=== PATIENT | female | born 1975 | race Caucasian/White ===

== ENCOUNTER 2019-06-07 15:54 | Emergency (ER) | payer MEDICAID, SELFPAY ==
[2019-06-07 15:56] VITALS: BP 149/68; PULSE 87; RESP 18; TEMP 36.8; O2SAT 100
--- NOTE | 2019-06-07 15:57 | W.ED.GENAD ---
Discharge Plan Disposition Patient Disposition: HOME Condition: Improving Discharge Details Chief Complaint: Nk/Back Pain Clinical Impression: Muscle spasm Primary Care Provider: Keeley Ardon ED Provider: Concepción Fuentes Home Meds and New Rx's Prescriptions: New diazepam [Valium] 5 mg tablet 5 mg PO TID PRN (Reason: muscle spasm) Qty: 10 RF: 0 ibuprofen 600 mg tablet 600 mg PO Q6H PRN (Reason: pain) Qty: 60 RF: 0 Continued cranberry extract 300 MG tablet 300 mg PO RF: 0 ascorbic acid (vitamin C) [Vitamin C] 500 MG tablet 500 mg PO RF: 0 norethindrone acetate 5 mg tablet 5 mg PO DAILY Qty: 90 RF: 0 Discharge Instructions Instructions: Muscle Spasm (ED) Additional Instructions: You have a muscle spasm. Please encourage water intake. Massage and pressure to this area will be of benefit. Heat or ice to affected area. Gentle stretching as discussed. Please take at thousand milligrams of acetaminophen every 6 hours as needed for pain, you may add this with 600 mg of ibuprofen as needed. Valium was prescribed for muscle spasm. Do not take this medication when driving. If you develop fever/chills, rash, increased pain, shortness of breath or the new/worsening symptoms please seek care urgently once again. Otherwise, please follow-up with primary care at the end of the week for reevaluation. Referral to physical therapy is attached. Stand Alone Forms: Physical Therapy Referral Referrals: Keeley Ardon [Primary Care Provider] - Discharge Data Discharge Date/Time-TO BE ENTERED AT DEPARTURE: 06/07/19 17:30 Medical Decision Making Patient is a 44-year-old [id number] female, accompanied by her son, with chief complaint of right-sided back pain. She reports insidious onset approximately 1 week ago that is progressively worsening. She reports that she has been getting stiff and noted a knot in the area of discomfort. She indicates the area between the spine and the scapular body is area of maximal discomfort. She denies any trauma. No fevers or chills. States that she did have a cough a few weeks ago but this is improved. She denies any shortness of breath. No recent travel. On exam, patient appears slightly uncomfortable, particularly when trying to move her right hand. She does have a palpable area of muscle spasm in the area indicated between the thoracic spine and the scapular body. No erythema, warmth, drainage. No area of fluctuance. She is good range of motion of the shoulder. Good range of motion of her spine although she does have discomfort when trying to stretch this area such as when crossing the arm across her body. No sensory deficits. No midline tenderness. No paraspinal tenderness. Pain does not seem to be under the scapula, do not believe associated with scapular bursitis. Lungs are clear. No pain with compression of the chest wall. Do not suspect underlying lung etiology at this time based on exam and history. Patient be treated with Valium, acetaminophen and Lidoderm patch. Patient feels improved with the above treatment plan. I encouraged heat or ice. Stretching exercises were given to the patient. She is given strict return precautions. I have asked that she follow-up with primary care at the end of the week for reevaluation. Advised that she may continue with the Valium but I encouraged she not drive while taking this medication. All of her questions and concerns were addressed she is in agreement this plan. Referral for PT was also given, advised to call to make appointment. [facility] General Mode of arrival: ambulatory. Date/Time Provider Initiated Documentation: 06/07/19 15:56. Limitations to Documentation: no limitations. Information obtained by: patient and RN notes reviewed. History of Present Illness 44 year old F presents to the emergency department with the chief complaint of right sided scapular pain, described as moderate, with intensity rated at 6. Quality is described as aching, and is localized to the back. Patient reports no radiation. Patient started experiencing this week(s) (1) and it has been constant. Immobilization improves symptom(s), Movement worsens symptoms . Patient notes no other symptoms.; denies chest pain, cough, diaphoresis, fever/chills, nausea/vomiting, rash, shortness of breath and weakness. Patient did receive the following treatments prior to arrival, NSAID Related Data Home Medications Medication Instructions Recorded Confirmed ascorbic acid (vitamin C) [Vitamin 500 mg PO 05/20/16 C] cranberry extract 300 mg PO 05/20/16 norethindrone acetate 5 mg tablet 5 mg PO DAILY #90 tab 01/07/19 06/07/19 diazepam [Valium] 5 mg PO TID PRN #10 tab 06/07/19 ibuprofen 600 mg PO Q6H PRN #60 tab 06/07/19 Previous Rx's Medication Instructions Recorded norethindrone acetate 5 mg tablet 5 mg PO DAILY #90 tab 01/07/19 diazepam [Valium] 5 mg PO TID PRN #10 tab 06/07/19 ibuprofen 600 mg PO Q6H PRN #60 tab 06/07/19 Allergies Allergy/AdvReac Type Severity Reaction Status Date / Time No Known Allergies Allergy Unverified 06/07/19 16:00 Review of Systems Constitutional Constitutional: Reports as per HPI, Denies chills, Denies fatigue, Denies fever(s), Denies headache(s) and Denies weakness Eyes Eyes: Denies change in vision ENT Ears, Nose, Mouth, and Throat: Denies headache(s) and Denies neck pain Cardiovascular Cardiovascular: Denies chest pain, Denies dyspnea and Denies dyspnea on exertion Respiratory Respiratory: Denies cough, Denies dyspnea and Denies dyspnea on exertion Gastrointestinal Gastrointestinal: Denies abdominal pain, Denies change in bowel habits and Denies fecal incontinence Genitourinary Genitourinary: Reports as per HPI, Denies urinary incontinence and Denies urinary hesitancy Musculoskeletal Musculoskeletal: Reports as per HPI, Denies abnormal gait, Reports back pain, Denies deformity, Denies joint swelling, Denies muscle weakness, Denies neck pain, Denies numbness, Denies radiating pain into limb, Reports stiffness and Denies tingling Integumentary/Breasts Skin/Breast: Reports as per HPI Neurologic Neurologic: Denies abnormal gait, Denies headache(s), Denies numbness, Denies sensory deficit, Denies tingling and Denies weakness Endocrine Endocrine: Denies fatigue [facility] Social History Smoking/Tobacco Use Status: Never Alcohol Intake: never Drug use: Never Do you feel safe at home: Yes Do you feel safe in your relationship?: Yes Exam Const General: cooperative, healthy appearing, comfortable, no acute distress and well developed Nutritional Appearance: average body habitus and well nourished Orientation: alert and awake Eyes General: appearance normal, both eyes and all related structures Neck Neck: normal visual inspection, full ROM, no lymphadenopathy and no meningeal signs Resp Effort & Inspection: normal respiratory effort, able to speak in complete sentences and no respiratory distress Auscultation: clear to auscultation bilaterally, no rales, no rhonchi and no wheezes Cardio Rate: regular rate Rhythm: regular rhythm Heart Sounds: S1 normal and S2 normal Back/Spine/Pelvis Back: no CVA tenderness Cervical Spine: normal cervical lordosis, cervical ROM normal, No cervical spasm, No cervical spinal tenderness and No step off deformity Thoracic/Lumbar Spine: No thoracic and lumbar spine normal to inspection (muscle spasm as drawn below), No thoraco-lumbar ROM normal (limited secondary to discomfort), No mass, No paraspinal tenderness, No thoracic spinal tenderness and No lumbar spinal tenderness Pelvis: no pain with anterior-posterior compression and no pain with lateral compression Back/spine/pelvis image: 1. area of palpable muscle spasm Skin General skin exam: no rashes or lesions noted Neuro General: alert and awake Cognition: normal cognition Speech: speech normal Gait: normal gait Motor: muscle tone normal throughout Sensory Exam: no sensory deficits noted (no saddle paresthesias) Extrem General: normal to inspection, full ROM, normal capillary refill, no joint enlargement, no pedal edema, no calf tenderness and normal gait Psych Appearance: grossly normal and well kempt Mental Status: mental status grossly normal Speech and Movement: speech and movement normal
[2019-06-07] MEDS: Acetaminophen 500 MG TAB 1000 MG PO (16:24)
[2019-06-07] MEDS: Lidocaine 5% Patch 1 PATCH TP (16:25)
[2019-06-07] MEDS: diazePAM 5 MG TAB PO (16:25)
[2019-06-07 17:27] VITALS: BP 112/79; PULSE 79; RESP 16; O2SAT 100
[2019-06-07 17:31] VITALS: BP 112/79; PULSE 79; RESP 16; O2SAT 100
== END 2019-06-07 17:30 | disposition home or self-care (01) ==
PROVIDERS: Emergency Provider Physician Assistant; PCP Nurse Practitioner
DX: M62.830 Muscle spasm of back (principal)
CPT/HCPCS: 99283

== ENCOUNTER 2020-01-15 19:53 | Emergency (ER) | payer MEDICAID, SELFPAY ==
[2020-01-15 19:57] VITALS: BP 143/85; PULSE 95; RESP 14; TEMP 36.5; O2SAT 98
--- NOTE | 2020-01-15 20:10 | ED.GENADUL_ITS ---
Discharge Plan Disposition Patient Disposition: HOME Condition: Good Discharge Details Chief Complaint: Sorethroat Clinical Impression: Pharyngitis Primary Care Provider: Keeley Ardon ED Provider: Peña Ayala Home Meds and New Rx's Prescriptions: Continued cranberry extract 300 MG tablet 300 mg PO DAILY RF: 0 ascorbic acid (vitamin C) [Vitamin C] 500 MG tablet 500 mg PO DAILY RF: 0 norethindrone acetate 5 mg tablet 5 mg PO DAILY Qty: 90 RF: 0 ibuprofen 600 mg tablet 600 mg PO Q6H PRN (Reason: pain) Qty: 60 RF: 0 Discharge Instructions Instructions: Pharyngitis (ED) Additional Instructions: At this time your strep test is negative. We suspect your symptoms are secondary to a viral etiology. There is a chance that this is the start of something called herpangina, which the treatment is still Tylenol, Motrin, salt water gargles, and spraying the Hurricaine spray 4-5 times per day as needed. If you notice any worsening of your symptoms, or any new symptoms such as vomiting, diarrhea, fever, chills, shortness of breath, chest pain, numbness, weakness, or fainting , please return immediately to the emergency department for reevaluation. Please follow up with your primary care provider as soon as possible for reassessment and reevaluation. As always, it was a pleasure participating in your medical care today. Referrals: Keeley Ardon [Primary Care Provider] - Discharge Data Discharge Date/Time-TO BE ENTERED AT DEPARTURE: 01/15/20 20:15 Medical Decision Making 44-year-old female with no significant past medical history who [facility] today for evaluation of sore throat. Patient states that this morning when she woke up she had a dry throat sensation, throughout the day it is become more sensitive and painful. She denies difficulty swallowing, she denies any hyper secretions. She states she has had strep throat in the past this feels similar. She denies any fever, chills, headache, neck pain, nausea vomiting or diarrhea, cough or shortness of breath. She denies any recent foreign travel or sick contacts. 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 No other complaints at this time. No other modifying factors. She has taken Tylenol Motrin which has slightly improved her symptoms and has been doing salt water gargles. Physical exam demonstrates no tonsillar enlargement or exudates. There is erythema in the posterior oropharynx and the uvula, no edema. No signs of airway compromise or peritonsillar abscess whatsoever. Strep test is negative. Signs and symptoms are consistent with a viral upper respiratory infection. This also may be the very early onset of herpangina. We did give Hurricaine spray and the patient had notable relief with this. Will recommend intermittent rare use of this at home every 6 hours. Discussed red flags for which to return. Recommend continue Tylenol Motrin saltwater gargles. No indication for antibiotics at this time. I have extensively reviewed the treatment plan and discharge instructions with the patient. I have addressed all patient concerns at this time. The patient was made aware of what symptoms to monitor for that would warrant a return to the emergency department. Discussed the plan with the patient, they demonstrate verbal understanding and agreement with our assessment and plan at this time. HPI General Date/Time Provider Initiated Documentation: 01/15/20 20:00 . HPI Narrative: 44-year-old female with no significant past medical history who presents today for evaluation of sore throat. Patient states that this morning when she woke up she had a dry throat sensation, throughout the day it is become more sensitive and painful. She denies difficulty swallowing, she denies any hyper secretions. She states she has had strep throat in the past this feels similar. She denies any fever, chills, headache, neck pain, nausea vomiting or diarrhea, cough or shortness of breath. She denies any recent foreign travel or sick contacts. 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 No other complaints at this time. No other modifying factors. She has taken Tylenol Motrin which has slightly improved her symptoms and has been doing salt water gargles. Related Data Home Medications Medication Instructions Recorded Confirmed ascorbic acid (vitamin C) [Vitamin 500 mg PO DAILY 05/20/16 01/15/20 C] cranberry extract 300 mg PO DAILY 05/20/16 01/15/20 norethindrone acetate 5 mg tablet 5 mg PO DAILY #90 tab 01/07/19 01/15/20 ibuprofen 600 mg PO Q6H PRN #60 tab 06/07/19 01/15/20 Previous Rx's Medication Instructions Recorded norethindrone acetate 5 mg tablet 5 mg PO DAILY #90 tab 01/07/19 ibuprofen 600 mg PO Q6H PRN #60 tab 06/07/19 Allergies Allergy/AdvReac Type Severity Reaction Status Date / Time No Known Allergies Allergy Unverified 01/15/20 20:00 General Stated Complaint: Sorethroat LIUDMILA: 4 Review of Systems All systems reviewed & are unremarkable except as noted in HPI and below PFSH Social History Smoking/Tobacco Use Status: Never Alcohol Intake: never Drug use: Never Substance use type: does not use Do you feel safe at home: Yes Do you feel safe in your relationship?: Yes Exam Narrative Exam Narrative: 1.Const: Well-nourished, Well-developed, appearing stated age 2.Eyes: PERRL, no conjunctival injection, and symmetrical lids. 3.ENT: Tympanic membranes are orona and pearly with no evidence of effusion or rupture. Posterior oropharynx is notably erythematous on the soft palate, no severe erythema in the tonsils, no tonsillar exudate or enlargement. No lesions at this point on the mucosa, no vesicles or ulcerations. Atraumatic external nose and ears. Moist MM. Neck: Symmetric, trachea midline, No thyromegaly. Mayi ent demonstrates good movement of cervical neck. There is no nuchal rigidity, no nuchal tenderness. Patient is able to flex the neck without any difficulty or significant pain. Negative Kernig's and Brudzinski sign. 4.CVS: +S1/S2, No murmurs or gallops. Peripheral pulses 2+ and equal in all extremities. Brisk capillary refill in all extremities. 5.RESP: Unlabored respiratory effort. Clear to auscultation bilaterally. No wheezes rales or rhonchi 6.GI: Soft, Nontender/Nondistended, No hepatosplenomegaly. No guarding or rebound. 7.MSK: Normocephalic/Atraumatic, Extremities w/o deformity or ttp No cyanosis or clubbing, Normal movement of all extremities 8.Skin: Warm, Dry. No rashes or lesions. 9.Neuro: manager academic II-XII grossly intact. Sensation grossly intact, no focal neurologic deficits. 10.Psych: (AAO) x3. Appropriate mood and affect Course Vital Signs Vital signs: Vital Signs Temperature 36.5 C 01/15/20 19:57 Pulse 95 H 01/15/20 19:57 Respiratory Rate 14 01/15/20 19:57 Blood Pressure 143/85 H 01/15/20 19:57 Pulse Oximetry 98 01/15/20 19:57 Temperature 36.5 C 01/15/20 19:57 Temperature Source Temporal Artery Scan 01/15/20 19:57 Pulse 95 H 01/15/20 19:57 Respiratory Rate 14 01/15/20 19:57 Respiratory Effort Non-Labored 01/15/20 20:01 Blood Pressure 143/85 H 01/15/20 19:57 Blood Pressure Position Sitting 01/15/20 19:57 Pulse Oximetry 98 01/15/20 19:57 Oxygen Delivery Method Room Air 01/15/20 19:57 Oxygen Flow Rate 0 01/15/20 19:57 Pain Level 5 01/15/20 19:57 Lab/Test Results Lab/Test Results: 01/15/20 20:06 Tonsil - Not Specified Streptococcus Screen (SUSIE) - Pending POC Strep Test-MIGUEL ANGEL(Rapid) Start: 01/15/20 19:58 Freq: .Rapid Strep Test Status: Active Protocol: Document 01/15/20 20:06 RICARDO (Rec: 01/15/20 20:06 RICARDO [email or web address]) Strep test-MIGUEL ANGEL(Rapid)-POC POC-Strep test-MIGUEL ANGEL (Rapid) Negative POC-Strep test-MIGUEL ANGEL (Rapid) Negative
[2020-01-15] MEDS: Benzocaine 20% 60 ML CAN TP (20:15)
== END 2020-01-15 20:15 | disposition home or self-care (01) ==
PROVIDERS: Emergency Provider Student in an Organized Health Care Education/Training Program; PCP Nurse Practitioner
DX: J02.8 Acute pharyngitis due to other specified organisms (principal)
CPT/HCPCS: 87880; 99282; 87081; 99283

== ENCOUNTER 2020-02-27 08:55 | Outpatient (REF) | payer MEDICAID, SELFPAY ==
[2020-02-27 19:28] LABS: HCT 42.8 % (36.0-46.0); HGB 13.8 g/dL (11.2-15.7); MCH 30.5 pg (27.0-33.0); MCHC 32.2 % (32.0-36.0); MCV 94.7 fL (80-95); MPV 12.1 fL (8.0-11.0); Platelet Count 212 10^3/uL (130-400); RBC 4.52 10^6/uL (3.93-5.22); RDW 12.5 % (11.7-14.6); RDW-SD 44.2 fL; WBC 5.51 10^3/uL (4.4-10.8)
[2020-02-27 19:43] LABS: ALT 25 U/L (14-59); AST 17 U/L (15-37); Albumin 4.2 g/dL (3.4-5.0); Alkaline Phosphatase 59 U/L (46-116); Anion Gap 7.9 mmol/L (3-11); BUN 17 mg/dL (7-18); Bilirubin, Total 0.5 mg/dL (0.2-1.0); CO2 27.1 mmol/L (21.0-32.0); CREATININE 0.93 mg/dL (0.55-1.02); Calcium 9.1 mg/dL (8.5-10.1); Calculated LDL 160 mg/dL (<100); Chloride 106 mmol/L (98-107); Cholesterol 231 mg/dL (<200); Glucose 87 mg/dL (74-106); HDL Cholesterol 56 mg/dL (40-60); Potassium 4.5 mmol/L (3.5-5.1); Sodium 141 mmol/L (136-145); Total Protein 7.2 g/dL (6.4-8.2); Triglyceride 76 mg/dL (<150)
== END 2020-02-27 09:15 ==
LOC: NCHCN 08:55
PROVIDERS: PCP Nurse Practitioner; Visit Provider Nurse Practitioner Family
DX: Z13.228 Encounter for screening for other metabolic disorders (principal); Z13.220 Encounter for screening for lipoid disorders
CPT/HCPCS: 80053; 80061; 85027

== ENCOUNTER 2022-04-08 12:57 | Outpatient (REF) | payer MEDICAID, SELFPAY ==
--- NOTE | 2022-04-08 11:45 | PAPFT_PTH ---
PATIENT: Cydney Painter LOC: [facility]#:[id number] AGE/SX: 47/F ROOM: RE04/08/[address]: Myah Calderon : 1975 BED: DIS: 04/08/2022 SPEC #: [id number] RECD: 04/09/22 18:44 STATUS: MATTHEW REYonathan #: [id number] CLYDE: 04/08/22 11:[address]: Myah Calderon DEPT: [facility] Cytology RECD BY: Rhonda Ambrose ENTERED: 04/09/22 18:44 SP TYPE: PAPFT OTHR DR: Keeley Ardon Tissues: 1 - CX/ENDOCX FOR PAP SMEARS Procedures: PAP THIN PREP/UVM Screening HPV DNA PROBE Comments: (HPV 16 & 18/45)
== END 2022-04-08 12:58 | disposition home or self-care (01) ==
LOC: NCHCN 12:57
PROVIDERS: PCP Nurse Practitioner; Visit Provider Nurse Practitioner Family
DX: Z12.4 Encounter for screening for malignant neoplasm of cervix (principal); Z11.51 Encounter for screening for human papillomavirus (HPV); R87.610 Atypical squamous cells of undetermined significance on cytologic smear of cervix (ASC-US); R87.810 Cervical high risk human papillomavirus (HPV) DNA test positive
CPT/HCPCS: 88142; 87624

== ENCOUNTER 2023-01-01 18:34 | Outpatient (REF) | payer MEDICAID, SELFPAY ==
[2023-01-01 21:24] LABS: Calculated LDL 122 mg/dL (<100); Cholesterol 217 mg/dL (<200); HDL Cholesterol 73 mg/dL (40-60); Triglyceride 112 mg/dL (<150)
== END 2023-01-01 18:35 | disposition home or self-care (01) ==
LOC: NCHCN 18:34
PROVIDERS: PCP Nurse Practitioner Family; Visit Provider Family Medicine
DX: E78.00 Pure hypercholesterolemia, unspecified (principal)
CPT/HCPCS: 80061

== ENCOUNTER → 2023-01-22 02:06 | Outpatient (CLI) | payer MEDICAID, SELFPAY ==
--- NOTE | 2023-01-22 | DI.MAMMO_ITS ---
Exam(s) MAMMO SCREENING EXAM: MAMMO SCREENING CLINICAL HISTORY: SCREENING, Z12.39. TECHNIQUE: Bilateral full field digital CC and MLO mammographic images were obtained with 3D tomosyn thesis and utilizing computer aided detection (CAD). COMPARISON: No priors. This is a baseline mammogram on this 47-year-old patient. FINDINGS: Fibroglandular tissue pattern is moderately dense. This somewhat decreases the sensitivity of the ma mmogram for finding hidden underlying lesions. There are no CAD designations. There are no new spiculated masses nor malignant appearing microcalcification groups. There is no significant architectural distortion nor skin thickening-retraction. IMPRESSION: Dense bilateral fibroglandular tissue. No obvious radiographic evidence of malignancy. BI-RADS Category 1 - Negative Breast Density - Category C - Heterogeneously dense Breast density Category C or D implies that the patient has dense breast tissue. Dense breast tissue can make it harder to find cancer on a mammogram. Dense breast tissue is also associated with an incr eased risk of breast cancer. This information about the result of the mammogram report was provided to the patient to raise their awareness. Use this report when you speak with the patient about their risks for breast cancer, which includes their family history. At that time, you may recommend additional screening tests (Ultrasoun d or MRI) as these tests may add significant information. A negative radiographic report should not delay biopsy if a dominant or clinically suspicious mass is present. Up to ten percent of cancers are not identified on mammography. A negative report may reinforce clinical impression. Adenosis and dense breasts may obscure an underlying neoplasm. False positive reports average 6 to 10%. Patient will receive a letter notifying them of these results.
== END ==
PROVIDERS: PCP Nurse Practitioner Family; Visit Provider Family Medicine
DX: Z12.31 Encounter for screening mammogram for malignant neoplasm of breast (principal)
CPT/HCPCS: 77063; 77067

== ENCOUNTER 2023-02-06 19:59 | Outpatient (REF) | payer MEDICAID, SELFPAY ==
[2023-02-06 20:45] LABS: Source Nasal/Nares
[2023-02-06 22:04] LABS: COVID-19 PCR Negative (Negative)
== END 2023-02-06 20:00 | disposition home or self-care (01) ==
LOC: LBN 19:59
PROVIDERS: PCP Nurse Practitioner Family; Visit Provider Physician Assistant Medical
DX: J20.9 Acute bronchitis, unspecified (principal); Z20.822 Contact with and (suspected) exposure to COVID-19
CPT/HCPCS: 87635

== ENCOUNTER 2023-03-02 16:42 | Outpatient (REF) | payer MEDICAID, SELFPAY ==
[2023-03-02 14:51] LABS: HCT 35.4 % (36.0-46.0); HGB 11.7 g/dL (11.2-15.7); MCH 31.9 pg (27.0-33.0); MCHC 33.1 % (32.0-36.0); MCV 97 fL (80-95); MPV 11.9 fL (8.0-11.0); Platelet Count 198 10^3/uL (130-400); RBC 3.67 10^6/uL (3.93-5.22); RDW 13.7 % (11.7-14.6); RDW-SD 47.3 fL; WBC 6.75 10^3/uL (4.4-10.8)
[2023-03-02 15:46] LABS: Ferritin 99 ng/mL (8-252); TSH (W/Ref FT4) 1.71 uIU/mL (0.36-3.74)
[2023-03-03 11:56] LABS: FSH 62.4 mIU/mL (See Note)
== END 2023-03-02 16:43 | disposition home or self-care (01) ==
LOC: NCHCN 16:42
PROVIDERS: PCP Nurse Practitioner Family; Visit Provider Family Medicine
DX: N93.9 Abnormal uterine and vaginal bleeding, unspecified (principal); Z00.00 Encounter for general adult medical examination without abnormal findings
CPT/HCPCS: 85027; 82728; 83001; 84443

== ENCOUNTER → 2023-03-09 03:12 | Outpatient (CLI) | payer MEDICAID, SELFPAY ==
--- NOTE | 2023-03-09 | DI.US_ITS ---
Exam(s) US PELVIS TRANSVAGINAL EXAM: US PELVIS TRANSVAGINAL CLINICAL HISTORY: MENSTRUAL BLEEDING, ABNL, N93.9 TECHNIQUE: Transabdominal and transvaginal imaging was performed using standard protocol. COMPARISON: US PELVIS TRANSVAG from 09/02/2011 FINDINGS: UTERUS: Anteverted. 7.2 x 3.7 x 4.7 cm Endometrium: 10 mm appears mildly thickened and heterogeneous. No focal abnormality identified. Myometrium: Unremarkable. Cervix: Unremarkable. OVARIES: Right: Cyst or mass: None. Left: Not visualized due to adjacent bowel. DOPPLER: Color: Symmetric and uniform flow to the right ovary no hyperemia. CUL-DE-SAC: Free fluid: None. IMPRESSION: Mildly thickened heterogeneous appearing endometrium. No evidence of fibroids. Right ovary unremarkable. Left ovary not visualized. DATA REPOSITORY:
== END ==
PROVIDERS: PCP Nurse Practitioner Family; Visit Provider Family Medicine
DX: N93.9 Abnormal uterine and vaginal bleeding, unspecified (principal)
CPT/HCPCS: 76830; 76856

== ENCOUNTER 2023-04-06 12:39 | Outpatient (REF) | payer MEDICAID, SELFPAY ==
--- NOTE | 2023-04-06 11:30 | ENDOMET_PTH ---
PATIENT: Cydney Painter LOC: [facility]#:[id number] AGE/SX: 48/F ROOM: RE04/06/[address]: Rosalinda Matos MD : 1975 BED: DIS: 04/06/2023 SPEC #: [id number] RECD: 04/06/23 12:56 STATUS: MATTHEW REQ #: [id number] CLYDE: 04/06/23 11:[address]: Rosalinda Matos DEPT: Surgical Specimen RECD BY: Rhonda Ambrose ENTERED: 04/06/23 12:57 SP TYPE: Endomet OTHR DR: Sravani Ramirez Tissues: 1 - ENDOMETRIUM BX/MONSTER Procedures: GROSS AND MICRO LEVEL 4 Comments: [id number]
== END 2023-04-06 12:40 | disposition home or self-care (01) ==
LOC: LBN 12:39
PROVIDERS: PCP Family Medicine; Visit Provider Obstetrics & Gynecology
DX: N84.0 Polyp of corpus uteri (principal)
CPT/HCPCS: 88305

== ENCOUNTER 2023-06-03 10:28 | Outpatient (REF) | payer MEDICAID, SELFPAY ==
--- NOTE | 2023-06-03 09:30 | PAPFT_PTH ---
PATIENT: Cydney Painter LOC: [facility]#:[id number] AGE/SX: 48/F ROOM: RE06/03/[address]: Sravani Ramirez : 1975 BED: DIS: 06/03/2023 SPEC #: [id number] RECD: 06/03/23 17:44 STATUS: MATTHEW VAZ #: [id number] CLYDE: 06/03/23 09:[address]: Sravani Ramirez DEPT: [facility] Cytology RECD BY: Rhonda Ambrose Tissues: 1 - CX/ENDOCX FOR PAP SMEARS Procedures: PAP THIN PREP/UVM Screening HPV DNA PROBE Comments: [id number]
== END 2023-06-03 10:29 | disposition home or self-care (01) ==
LOC: NCHCN 10:28
PROVIDERS: PCP Family Medicine; Visit Provider Family Medicine
DX: Z00.00 Encounter for general adult medical examination without abnormal findings (principal); Z12.4 Encounter for screening for malignant neoplasm of cervix; Z01.419 Encounter for gynecological examination (general) (routine) without abnormal findings
CPT/HCPCS: 88142; 87624

== ENCOUNTER 2024-05-18 03:24 | Outpatient (CLI) | payer MEDICAID, SELFPAY ==
--- NOTE | 2024-05-18 06:15 | DI.US_ITS ---
Exam(s) US PELVIS TRANSVAGINAL EXAM: US PELVIS TRANSVAGINAL CLINICAL HISTORY: anatomy, check stripe,pelvic pressure in female,r10.2. TECHNIQUE: Transabdominal and transvaginal pelvic ultrasound was performed using standard protocol. COMPARISON: US US PELVIS TRANSVAGINAL from 03/09/2023 FINDINGS: UTERUS: Position: Anteverted. Size: 6.1 long by 2.9 AP by 4.1 transverse cm Endometrium: 0.3 cm. Normal for patient's menstrual status. There is a small amount of fluid seen wit hin the endometrial canal. Myometrium: Unremarkable. Cervix: Unremarkable. OVARIES: Right: 2.6 x 1.2 x 2.4 cm Cyst or mass: No suspicious cystic or solid masses. Left: 2.0 x 1.6 x 1.2 cm Cyst or mass: No suspicious cystic or solid masses. DOPPLER: Color: Symmetric and uniform flow to both ovaries. CUL-DE-SAC: Free fluid: None. Other: None. IMPRESSION: 1. Unremarkable uterus. 2. Endometrial stripe is within normal limits. 3. Tiny amount of fluid seen within the endometrial canal. 4. Unremarkable bilateral ovaries. DATA REPOSITORY:
== END 2024-05-18 03:44 ==
LOC: DI 03:24
PROVIDERS: PCP Family Medicine; Visit Provider Obstetrics & Gynecology
DX: R10.2 Pelvic and perineal pain (principal)
CPT/HCPCS: 76830; 76856

== ENCOUNTER 2024-06-07 21:46 | Outpatient (REF) | payer MEDICAID, SELFPAY ==
--- NOTE | 2024-06-07 15:00 | PAPFT_PTH ---
PATIENT: Cydney Painter LOC: [facility]#:[id number] AGE/SX: 49/F ROOM: RE06/07/[address]: Sravani Ramirez : 1975 BED: DIS: 06/07/2024 SPEC #: [id number] RECD: 06/08/24 17:36 STATUS: MATTHEW VAZ #: [id number] CLYDE: 06/07/24 15:[address]: Sravani Ramirez DEPT: [facility] Cytology RECD BY: Rhonda Ambrose Tissues: 1 - CX/ENDOCX FOR PAP SMEARS Procedures: PAP THIN PREP/UVM Screening HPV DNA PROBE Comments: [id number] (HPV 16 & 18/45)
[2024-06-07 22:10] LABS: Abs Immature Grans 0.01 10^3/uL (0.0-0.06); Absolute Basophil Count 0.03 10^3/uL (0.0-0.2); Absolute Eosinophil Count 0.08 10^3/uL (0.0-0.7); Absolute Lymphocyte Count 1.46 10^3/uL (1.2-3.4); Absolute Monocyte Count 0.48 10^3/uL (0.1-0.8); Basophils % 0.5 %; Eosinophils % 1.4 %; HCT 38.9 % (36.0-46.0); HGB 12.6 g/dL (11.2-15.7); Immature Grans % 0.2 %; Lymphocytes % 24.9 %; MCH 30.9 pg (27.0-33.0); MCHC 32.4 % (32.0-36.0); MCV 95 fL (80-95); MPV 11.7 fL (8.0-11.0); Monocytes % 8.2 %; Neutrophils % 64.8 %; Platelet Count 208 10^3/uL (130-400); RBC 4.08 10^6/uL (3.93-5.22); RDW 12.1 % (11.7-14.6); RDW-SD 42.3 fL; WBC 5.86 10^3/uL (4.4-10.8)
[2024-06-07 22:18] LABS: Iron 56 ug/dL (50-170); Total Iron Binding Capacity 337 ug/dL (250-450)
[2024-06-07 22:45] LABS: Ferritin 57 ng/mL (8-252); TSH (W/Ref FT4) 1.35 uIU/mL (0.36-3.74); Vitamin D 25 Total 38.4 ng/mL (30-100)
== END 2024-06-07 21:47 | disposition home or self-care (01) ==
LOC: NCHCN 21:46
PROVIDERS: PCP Family Medicine; Visit Provider Family Medicine
DX: Z11.51 Encounter for screening for human papillomavirus (HPV) (principal); Z01.419 Encounter for gynecological examination (general) (routine) without abnormal findings
CPT/HCPCS: 82306; 88142; 82728; 83540; 83550; 84443; 85025; 87624

== ENCOUNTER 2024-06-30 02:49 | Outpatient (CLI) | payer MEDICAID, SELFPAY ==
--- NOTE | 2024-06-30 | DI.MAMMO_ITS ---
Exam(s) MAMMO SCREENING EXAM: MAMMO SCREENING CLINICAL HISTORY: Screening, Z12.31 TECHNIQUE: Bilateral full field digital CC and MLO mammographic images were obtained with 3D tomosyn thesis and utilizing computer aided detection (CAD). COMPARISON: Available for comparison. FINDINGS: Masses/Architectural Distortion: None seen. Microcalcifications: No suspicious pleomorphic-type are seen. Skin Thickening/Nipple Retraction: None. IMPRESSION: 1. No significant interval change with no specific features of malignancy noted. 2. Unless there is more urgent need, screening mammography is recommended, as per [employer] guidelines. BI-RADS Category 1 - Negative Breast Density - Category C - Heterogeneously dense Breast density category C or D implies that the patient has dense breast tissue. Dense breast tissue is very common and is not abnormal but dense breast tissue can make it harder to find cancer on a ma mmogram. Also, dense breast tissue may increase their breast cancer risk. This information about the result of the mammogram report was provided to the patient to raise their awareness. Use this report when you speak with the patient about their risks for breast cancer, which includes their family hist ory. At that time, you may recommend for more screening tests (Ultrasound or MRI) as they might be us eful based on their risk. A negative radiographic report should not delay biopsy if a dominant or clinically suspicious mass is present. Up to ten percent of cancers are not identified on mammography. A negative report may reinforce clinical impression. Adenosis and dense breasts may obscure an underlying neoplasm. False positive reports average 6 to 10%. Patient will receive a letter notifying them of these results.
== END 2024-06-30 03:09 ==
LOC: DI 02:49
PROVIDERS: PCP Family Medicine; Visit Provider Family Medicine
DX: Z12.31 Encounter for screening mammogram for malignant neoplasm of breast (principal); R92.333 Mammographic heterogeneous density, bilateral breasts
CPT/HCPCS: 77063; 77067